=== PATIENT | male | born 1985 | race Caucasian/White ===

== ENCOUNTER 2020-12-30 15:12 | Emergency (ER) | payer SELFPAY ==
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
[2020-12-30 19:19] LABS: C. TRACHOMATIS BY PCR NOT DETECTED; N. GONORRHOEAE BY PCR NOT DETECTED
== END 2020-12-30 17:20 | disposition home or self-care (01) ==
LOC: JD.ED 15:12
DX: Z20.2 Contact with and (suspected) exposure to infections with a predominantly sexual mode of transmission (principal); R10.30 Lower abdominal pain, unspecified
CPT/HCPCS: 36415; 86592; 87491; 87591; 87801; 99282; 99283; G0433

== ENCOUNTER 2021-08-28 18:02 | Emergency (ER) | payer SELFPAY ==
[2021-08-28] MEDS ORDERED: Diphtheria,Pertussis(Acell),Tetanus Vaccine 0.5 ML Syringe IM ONE (19:16)
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
== END 2021-08-28 19:29 | disposition home or self-care (01) ==
LOC: JD.ED 18:02
DX: S01.01XA Laceration without foreign body of scalp, initial encounter (principal); Z86.16 Personal history of COVID-19; Z23 Encounter for immunization; W20.8XXA Other cause of strike by thrown, projected or falling object, initial encounter; Y92.002 Bathroom of unspecified non-institutional (private) residence as the place of occurrence of the external cause
CPT/HCPCS: 12001; 90471; 90715; 99282-25

== ENCOUNTER 2021-09-06 18:24 | Emergency (ER) | payer SELFPAY | END 2021-09-06 19:15 | disposition home or self-care (01) | LOC: JD.ED 18:24 | DX: S01.81XD Laceration without foreign body of other part of head, subsequent encounter (principal); Z48.02 Encounter for removal of sutures | CPT/HCPCS: 99281 ==